=== PATIENT | female | born 1960 | race Caucasian/White ===

== ENCOUNTER → 2016-11-08 | Outpatient (CLI) | payer BC ==
--- NOTE | 2016-11-08 09:15 | CT ---
EXAMINATION TYPE: CT chest wo con DATE OF EXAM: 11/08/2016 8:59 AM COMPARISON: 11/11/2015 HISTORY: Patient complains of some shortness of breath. Follow up for known pulmonary nodule. CT DLP: 132.8 mGycm Automated exposure control for dose reduction was used. FINDINGS: There are bilateral breast implants in place. The heart is normal size without pericardial effusion. Aorta is normal caliber with conventional arch vessel branching anatomy. No thoracic lymphadenopathy. There is pleural-parenchymal scarring at the right apex with with a more spiculated region of opacity measuring 1.3 x 1.4 cm. Previously, this measured 1.3 x 1.4 cm on previous and 1.5 x 1.2 cm on 07/20. Overall size is unchanged. Some minimal strandy atelectasis in the basilar left lower lobe. No consolidation or pleural effusion. A tiny 3 mm pulmonary nodule left upper lobe axial image 24 is unchanged from 2013. Visualized upper abdomen shows no gross abnormality. Bones: Hypertrophic and degenerative change of the vertebral column noted. IMPRESSION: 1. Findings at the right apex favored to represent an area of pleural-parenchymal scarring as it has remained relatively stable back to 07/20/2014. Two years of stability which would support a benign et iology. 2. A left upper lobe 3 mm pulmonary nodule has also remained stable back to 07/20/2014 suggesting a b enign etiology.
== END | disposition home or self-care (01) ==
LOC: RADCTMAIN 08:37
PROVIDERS: ATTEND Internal Medicine Sleep Medicine
DX: R91.1 Solitary pulmonary nodule (principal)
CPT/HCPCS: 71250

== ENCOUNTER → 2017-11-28 | Outpatient (CLI) | payer BC, MEDICARE ==
--- NOTE | 2017-11-28 09:14 | CT ---
EXAMINATION TYPE: CT chest wo con DATE OF EXAM: 11/28/2017 COMPARISON: 11/08/2016 CT thorax, PET/CT dated 07/24/[address] dated 07/20/2014 HISTORY: Solitary pulmonary nodule CT DLP: 460 mGycm. Automated Exposure Control for Dose Reduction was Utilized. TECHNIQUE: CT scan of the thorax is performed without IV contrast. FINDINGS: LUNGS: Right apical pleural parenchymal scarring with central lucency, triangular morphology is uncha nged from the prior exam of 2016. This is also noted to be unchanged in size measuring 1.5 x 1.2 cm d ating back to 07/20/2014 and did not demonstrate hypermetabolic activity in the prior PET/CT. This sh ould be considered benign and related to right apical pleural scarring. The previously seen 3 mm left upper lobe pulmonary nodule now measures 2 mm and should also be considered benign, smaller than on the exam of 2013. No new focal consolidation, new pulmonary nodule, new pulmonary mass, pneumothorax or pleural effusion is seen. There is no pleural effusion or pneumothorax seen. The tracheobronchi al tree is patent. MEDIASTINUM: Lack of IV contrast is noted to limit evaluation for mediastinal and especially hilar ad enopathy. There are no definitive greater than 1 cm hilar or mediastinal lymph nodes. No cardiomega ly or pericardial effusion is seen. OTHER: Minimal degenerative changes of the thoracic spine are noted at multiple levels. Bilateral shaan ast implants are incidentally seen. IMPRESSION: Stable right apical pleural-parenchymal scarring and smaller 2 mm left upper lobe pulmona ry nodule in comparison to exam of 2014 should be considered benign. No new pulmonary mass or nodules identified. No mediastinal adenopathy.
== END ==
LOC: RADCTMAIN 08:42
PROVIDERS: ATTEND Internal Medicine Sleep Medicine
DX: R91.1 Solitary pulmonary nodule (principal)
CPT/HCPCS: 71250

== ENCOUNTER → 2017-12-13 | Outpatient (CLI) | payer MEDICARE ==
--- NOTE | 2017-12-13 12:52 | CT ---
EXAMINATION TYPE: CT abdomen pelvis w con DATE OF EXAM: 12/13/2017 COMPARISON: 04/20/2012 HISTORY: IBS with constipation; RLQ pain CT DLP: 502.10 mGycm Automated exposure control for dose reduction was used. CONTRAST: CT scan of the abdomen pelvis is performed with IV Contrast, patient injected with 100 mll mL of Isov ue 300. FINDINGS- LUNG BASES- No significant abnormality is appreciated. Previous breast surgery noted. LIVER/GB- No gross abnormality is appreciated. PANCREAS- No gross abnormality is seen. SPLEEN- No gross abnormality is seen. ADRENALS- No gross abnormality is seen. KIDNEYS/BLADDER- no hydronephrosis or nephrolithiasis. There is a 1 mm tiny density within the mid co rtex of the right kidney too small to characterize.. BOWEL- no bowel dilatation. Retained fecal debris throughout the colon correlate for constipation. L imited survey sigmoid colon there is a localized focal area of narrowing. LYMPH NODES- No greater than 1cm abdominal or pelvic lymph nodes are appreciated. OSSEOUS STRUCTURES-postsurgical change involving the lower lumbar spine with multilevel degenerative disc disease and hypertrophic changes noted.. OTHER- there is a slight depression along the proximal margin of the celiac axis which appears paten t and enhances normally. This can be associated with median arcuate ligament syndrome. Uterus is not seen correlate for history of previous hysterectomy. IMPRESSION- 1. Extensive retained fecal debris throughout the colon correlate for constipation. 2. There is a superior impression upon the proximal celiac axis which can be associated with the medi an arcuate ligament syndrome. 3. Within the mid sigmoid colon there is a localized focal area of narrowing. No evidence of obstruct ion. This could be transient peristalsis. Correlate clinically and if necessary with direct visualiza tion or barium enema to exclude mucosal lesion.
== END | disposition home or self-care (01) ==
LOC: RADCTMAIN 09:36
PROVIDERS: ATTEND Internal Medicine
DX: K58.1 Irritable bowel syndrome with constipation (principal); Z88.0 Allergy status to penicillin
CPT/HCPCS: 74177; Q9967

== ENCOUNTER → 2018-06-25 | Outpatient (CLI) | payer MEDICARE ==
--- NOTE | 2018-06-25 10:36 | MR ---
EXAMINATION TYPE: MR lumbar wo con DATE OF EXAM: 06/25/2018 COMPARISON: 10/15/2013 HISTORY: Chronic pain, Dorsalgia, Pain in thoracic spine TECHNIQUE: T1 and T2 axial and sagittal images of the lumbar spine are submitted. FINDINGS: There is no abnormal signal seen within the visualized spinal cord or paraspinal soft tissu es. Heterogeneous marrow signal is seen. There is postsurgical change levels L4-S1. Lack of contrast limits assessment. At L1-2 there is no disc herniation or canal stenosis. No foraminal encroachment. Tiny nerve root sle christiano diverticulum noted bilaterally. At L2-3 there is a circumferential disc bulging but no canal stenosis. Bulging greater laterally to l eft with a small annular tear and mild left-sided foraminal encroachment. There is a 2 mm retrolisthe sis of L2 relative to L3. At L3-4 there is degenerative disc disease. No canal stenosis or focal herniation. Mild circumferenti al disc bulging. Neural foramina patent. At L4-5 there is postsurgical change. No obvious disc herniation or canal stenosis. At L5-S1 there is postsurgical change no obvious disc herniation or canal stenosis. Neural foramina a ppear to be patent. IMPRESSION: 1. Postsurgical change with no definite disc herniation or canal stenosis. 2. At L2-L3 there is an annular tear and far left lateral disc bulge with mild left foraminal encroac hment which is new from the prior exam. 3. Heterogeneous marrow signal is nonspecific and be seen with osteopenia, marrow reconversion. Corre late clinically to exclude history of lymphoproliferative disorder or malignancy. Correlate with bone scan as clinically warranted. EXAMINATION TYPE: MR cervical spine wo con DATE OF EXAM: 06/25/2018 COMPARISON: 10/15/2013 HISTORY: Chronic pain, Dorsalgia, Pain in thoracic spine TECHNIQUE: T1 sagittal and coronal, T2 sagittal, and gradient echo axial views of the cervical spine are submitted. FINDINGS: The cranial cervical junction is preserved. There is no abnormal signal seen within the sp inal cord or paraspinal soft tissues. At C2-3 there is facet arthropathy. There is mild degenerative disc disease and uncovertebral joint h ypertrophy. No disc herniation or canal stenosis. Neural foramina patent. At C3-4 there is degenerative disc disease with facet arthropathy. Mild uncovertebral joint hypertrop hy but no canal stenosis or disc herniation. At C4-5 there is degenerative disc disease with uncovertebral joint hypertrophy and facet arthropathy . No disc herniation or canal stenosis. Neural foramina patent. At C5-6 there is severe degenerative disc disease with posterior spondylosis. Disc osteophyte complex protrudes posteriorly appears stable to prior exam. Uncovertebral joint hypertrophy and facet arthro genevieve contribute to bilateral foraminal encroachment which appears stable. At C6-7 there is severe degenerative changes with discogenic marrow changes. Disc bulging capped by s pur is noted with uncovertebral joint hypertrophy. Mild bilateral foraminal encroachment. No Canal st enosis. At C7-T1 there is no disc herniation or canal stenosis. No foraminal encroachment. IMPRESSION: 1. Multilevel degenerative disc disease with posterior spondylosis. Borderline canal stenosis C5-C6 with bilateral foraminal encroachment is stable. EXAMINATION TYPE: MR thoracic spine wo con DATE OF EXAM: 06/25/2018 COMPARISON: 06/03/2014 HISTORY: Chronic pain, Dorsalgia, Pain in thoracic spine TECHNIQUE: Multiplanar multisequence noncontrast imaging of the thoracic spine. FINDINGS: There is diffuse heterogeneous marrow signal. There is multilevel degenerative disc disease with hypertrophic spurring and loss of disc space and s ignal. No canal stenosis or focal herniation. Visualized spinal cord has a normal signal pattern. Minimal disc bulging paracentrally left at T8-T9. IMPRESSION: 1. Multilevel degenerative disc disease. 2. Heterogeneous marrow signal is nonspecific. Marrow reconversion in the differential correlate for history of lymphoproliferative disorder or malignancy. 3. Very mild left paracentral disc bulging T8-T9.
== END ==
LOC: RADMRIMAIN 08:39
PROVIDERS: ATTEND Psychiatry & Neurology Neurology
DX: M51.24 Other intervertebral disc displacement, thoracic region (principal); M51.34 Other intervertebral disc degeneration, thoracic region; M48.02 Spinal stenosis, cervical region; M50.30 Other cervical disc degeneration, unspecified cervical region; M47.812 Spondylosis without myelopathy or radiculopathy, cervical region; M51.26 Other intervertebral disc displacement, lumbar region
CPT/HCPCS: 72141; 72146; 72148

== ENCOUNTER → 2018-07-17 | Outpatient (CLI) | payer BC ==
--- NOTE | 2018-07-17 12:05 | NM ---
EXAMINATION TYPE: NM bone 3 phase DATE OF EXAM: 07/17/2018 COMPARISON: 06/25/2018 HISTORY: Abnormal MRI Triple phase bone scintigraphy was performed following the injection of 23.6 mCi Tc 99m MDP. Immedia te images and 3.5 hours post injection images acquired. FINDINGS: Perfusion overlying the abdomen is symmetric. Soft tissue uptake is symmetric. Delayed uptake demonst rates reduced uptake in L4 and L5 which likely is related. Abnormal uptake involving the feet likely is post arthritic. Abnormal uptake involving the knees like ly is post arthritic. Abnormal uptake involving the shoulders likely is post arthritic. Nonspecific uptake involving the mid and lower thoracic and cervical spine. IMPRESSION: 1. Uptake involving the mid and lower thoracic and cervical spine is nonspecific and correlates to th e MRI findings. 2. Reduced uptake at L4 and L5 likely is postsurgical. 3. Additional areas of abnormal uptake are suggestive of arthritic changes.
== END | disposition home or self-care (01) ==
LOC: RADNMMAIN 07:21
PROVIDERS: ATTEND Internal Medicine
DX: R94.8 Abnormal results of function studies of other organs and systems (principal)
CPT/HCPCS: 78315; A9503

== ENCOUNTER → 2019-06-12 | Outpatient (CLI) | payer BC ==
--- NOTE | 2019-06-12 18:27 | CT ---
EXAMINATION TYPE: CT chest wo con DATE OF EXAM: 06/12/2019 COMPARISON: 11/28/2017 HISTORY: Lung nodule CT DLP: 149.9 mGycm, Automated exposure control for dose reduction was used. CONTRAST: Performed injected with 0 mL of Isovue 300. TECHNIQUE: Axial images were obtained at 5 mm thick sections. Reconstructed images are reviewed on [employer] computer in the coronal plane. FINDINGS: Portion of the thyroid visualized is normal. Bilateral breast prostheses are noted. There is a spiculated 1.7 cm. The right apex. This could be scarring or underlying mass. This was pre sent 11/28/2017. No enlarged mediastinal or hilar adenopathy is evident. The ascending aorta diameter at the level o f the main pulmonary artery is 3.0 cm. The main pulmonary artery diameter at the bifurcation is 2.[address] sections are obtained through the upper abdomen. Abdomen is essentially unremarkable. IMPRESSIONS: 1. Spiculated right apical mass appears stable.
== END | disposition home or self-care (01) ==
LOC: RADCTMAIN 11:24
PROVIDERS: ATTEND Internal Medicine Sleep Medicine
DX: R91.1 Solitary pulmonary nodule (principal)
CPT/HCPCS: 71250

== ENCOUNTER → 2019-08-14 | Outpatient (CLI) | payer BC ==
--- NOTE | 2019-08-14 12:47 | MR ---
EXAMINATION TYPE: MR cervical spine wo/w con DATE OF EXAM: 08/14/2019 COMPARISON: 03/18/2018 HISTORY: Radiculopathy, cervical and lumbar region TECHNIQUE: T1 sagittal and coronal, T2 sagittal, and gradient echo axial views of the cervical spine are submitted. CONTRAST: 6.5 mL Gadavist FINDINGS: The cranial cervical junction is preserved. There is no abnormal signal seen within the sp inal cord or paraspinal soft tissues.There is a density in the right upper lobe seen on coronal image s which may be related to pleural thickening or scar. Other etiologies not excluded. Findings stable from chest CT of 11/28/2017. Heterogeneous marrow signal also involves the clivus. Bone scan could be performed as clinically warranted At C2-3 there is facet arthropathy. There is mild degenerative disc disease and uncovertebral joint h ypertrophy. No disc herniation or canal stenosis. Neural foramina patent. Minimal enhancement along t he posterior margin the disc spaces C2-C3. No corresponding abnormal signal in T2 imaging. This may b e discogenic. At C3-4 there is degenerative disc disease with facet arthropathy. Mild uncovertebral joint hypertrop hy but no canal stenosis or disc herniation. At C4-5 there is degenerative disc disease with uncovertebral joint hypertrophy and facet arthropathy . No disc herniation or canal stenosis. Neural foramina patent. At C5-6 there is severe degenerative disc disease with posterior spondylosis. Disc osteophyte complex protrudes posteriorly appears stable to prior exam. Uncovertebral joint hypertrophy and facet arthro genevieve contribute to bilateral foraminal encroachment which appears stable. At C6-7 there is severe degenerative changes with discogenic marrow changes. Disc bulging capped by s pur is noted with uncovertebral joint hypertrophy. Mild bilateral foraminal encroachment. No Canal st enosis. At C7-T1 there is no disc herniation or canal stenosis. No foraminal encroachment. IMPRESSION: 1. Multilevel degenerative disc disease with posterior spondylosis. Borderline canal stenosis C5-C6 w ith bilateral foraminal encroachment is stable. 2. Minimal enhancement along the posterior margin of the disc space at C2-C3 is nonspecific due to it s small size. No corresponding abnormal signal seen on T2 imaging. This could be discogenic. There is concern for discitis correlate clinically. 3. Stable nonspecific heterogeneous signal to the clivus. EXAMINATION TYPE: MR lumbar spine wo/w con DATE OF EXAM: 08/14/2019 COMPARISON: 03/18/2018 HISTORY: Radiculopathy, cervical and lumbar region CONTRAST: 6.5 mL Gadavist TECHNIQUE: T1 and T2 axial and sagittal images of the lumbar spine are submitted. FINDINGS: There is no abnormal signal seen within the visualized spinal cord or paraspinal soft tissu es. Heterogeneous marrow signal is seen. There is postsurgical change levels L4-S1. Lack of contrast limits assessment. Stable dural ectasia in the lower lumbar region. At L1-2 there is no disc herniation or canal stenosis. No foraminal encroachment. Tiny nerve root sle christiano diverticulum noted bilaterally. At L2-3 there is a circumferential disc bulging but no canal stenosis. Bulging greater laterally to l eft with a small annular tear and mild left-sided foraminal encroachment. There is a 2 mm retrolisthe sis of L2 relative to L3. At L3-4 there is degenerative disc disease. No canal stenosis or focal herniation. Mild broad-based c entral disc bulging stable. Neural foramina patent. At L4-5 there is postsurgical change. No obvious disc herniation or canal stenosis. At L5-S1 there is postsurgical change no obvious disc herniation or canal stenosis. Neural foramina a ppear to be patent. Stable intermediate signal anterior to the thecal sac L5-S1 unchanged from 2014 m ay been the basis of postoperative scar correlate clinically. Dural ectasia noted involving the lower lumbar regions. IMPRESSION: 1. Postsurgical change with no definite disc herniation or canal stenosis. Heterogeneous signal seen anterior to the thecal sac L5-S1 is stable dating back to 2014 likely in the basis of scar. 2. At L2-L3 there is an annular tear and far left lateral disc protrusion with mild left foraminal en croachment which is stable from the prior exam. 3. Heterogeneous marrow signal is nonspecific and be seen with osteopenia, marrow reconversion. Corre late clinically to exclude history of lymphoproliferative disorder or malignancy. 4. Mild broad-based central disc bulging L3-L4 stable relative to the prior exam. 5. Stable dural ectasia lower lumbar spine.
== END | disposition home or self-care (01) ==
LOC: RADMRIMAIN 08:23
PROVIDERS: ATTEND Psychiatry & Neurology Neurology
DX: M48.02 Spinal stenosis, cervical region (principal); M50.11 Cervical disc disorder with radiculopathy, high cervical region; M47.22 Other spondylosis with radiculopathy, cervical region; M51.26 Other intervertebral disc displacement, lumbar region; M51.86 Other intervertebral disc disorders, lumbar region; Z98.890 Other specified postprocedural states
CPT/HCPCS: 72156; 72158; A9585

== ENCOUNTER → 2020-06-29 | Outpatient (CLI) | payer BC ==
--- NOTE | 2020-06-29 09:21 | CT ---
EXAMINATION TYPE: CT chest wo con DATE OF EXAM: 06/29/2020 COMPARISON: Chest CT June 12, 2019 and older CTs HISTORY: Solitary pulmonary nodules CT DLP: 156.7 mGycm. Automated Exposure Control for Dose Reduction was Utilized. TECHNIQUE: CT scan of the thorax is performed without IV contrast. FINDINGS: LUNGS: There is 1.4 x 1.0 cm scarlike opacity right lung apex axial image [address] pr esumed benign. No new greater than 4 mm pulmonary nodules or masses. Mild posterior left basilar line ar scarring. No new suspicious consolidation. No pleural effusion or pneumothorax. MEDIASTINUM: Lack of IV contrast is noted to limit evaluation for mediastinal and especially hilar ad enopathy. There are no definitive greater than 1 cm hilar or mediastinal lymph nodes. No cardiomega ly or pericardial effusion is seen. OTHER: Bilateral intact subpectoral breast implants redemonstrated. Partial visualization of surgical change lumbar spine on localizer. IMPRESSION: Stable scarlike opacity right lung apex from 2014 CT presumed benign. No new suspicious n odules or masses.
== END | disposition home or self-care (01) ==
LOC: RADCTMAIN 08:34
PROVIDERS: ATTEND Internal Medicine Sleep Medicine
DX: R91.8 Other nonspecific abnormal finding of lung field (principal); R91.1 Solitary pulmonary nodule
CPT/HCPCS: 71250

== ENCOUNTER → 2020-06-29 | Outpatient (CLI) | payer BC ==
[2020-06-29 09:37] LABS: HCT 38.4 % (34.0-46.0); MCH 30.1 pg (25.0-35.0); MCHC 31.2 g/dL (31.0-37.0); MCV 96.5 fL (80.0-100.0); Mean Platelet Volume 6.6; Platelet Count 303 k/uL (150-450); RBC 3.98 m/uL (3.80-5.40); RDW 12.3 % (11.5-15.5); WBC 3.3 k/uL (3.8-10.6)
[2020-06-29 15:36] LABS: Protein, Total 6.9 g/dL (6.2-8.2)
[2020-06-29 16:46] LABS: Anti-DNA, DS unit <1.0 IU/mL; DNA Double-Stranded NEGATIVE (NEGATIVE)
[2020-06-29 18:53] LABS: Hemoglobin A1C 5.7 % (4.0-6.0)
[2020-06-29 20:14] LABS: Erythrocyte Sedimentation Rate 30 mm/Hr (0-30)
[2020-06-30 14:35] LABS: Albumin 4.17 g/dL (3.80-4.90)
== END | disposition home or self-care (01) ==
LOC: LABWHC1 08:11
PROVIDERS: ATTEND Psychiatry & Neurology Neurology
DX: M54.17 Radiculopathy, lumbosacral region (principal); M54.9 Dorsalgia, unspecified; M54.30 Sciatica, unspecified side; G89.29 Other chronic pain
CPT/HCPCS: 36415; 82306; 82607; 83036; 84165; 84443; 85027; 85652; 86225; 86334

== ENCOUNTER → 2021-09-29 | Outpatient (CLI) | payer BC | END | disposition home or self-care (01) | LOC: LABWHC1 14:17 | PROVIDERS: ATTEND Internal Medicine | DX: R50.9 Fever, unspecified (principal); R51.0 Headache with orthostatic component, not elsewhere classified | CPT/HCPCS: U0003; C9803; U0005 ==

== ENCOUNTER → 2021-11-20 | Outpatient (CLI) | payer BC | END | disposition home or self-care (01) | LOC: LABWHC1 15:25 | PROVIDERS: ATTEND Nurse Practitioner | DX: R00.2 Palpitations (principal) | CPT/HCPCS: 36415; 84443 ==

== ENCOUNTER → 2022-08-07 | Outpatient (CLI) | payer BC ==
--- NOTE | 2022-08-07 13:12 | XR ---
EXAMINATION TYPE: XR cervical spine comp DATE OF EXAM: 08/07/2022 TECHNIQUE: Frontal, lateral, oblique, and open mouth view of the cervical spine are obtained. HISTORY: [id number] CERVICALGIA COMPARISON: MRI cervical spine August 14, 2019 FINDINGS: The cervical spine is visualized in its entirety from C1 thru the top of T1 level, there i s new grade 1 anterolisthesis C4 on C5. There is stable grade 1 retrolisthesis C5 on C6. The pre-vert ebral soft tissue appears within normal limits. The C1-C2 articulation is within normal limits on th e open mouth view. Moderate to severe disc space narrowing with endplate sclerosis C5-C6 level is re demonstrated. Moderate disc space narrowing with mild spurring C6-C7 level is redemonstrated. The obl ique images are within normal limits. Overlying soft tissue is unremarkable. IMPRESSION: As above.
== END | disposition home or self-care (01) ==
LOC: RADXRYALE 12:13
PROVIDERS: ATTEND Internal Medicine
DX: M50.322 Other cervical disc degeneration at C5-C6 level (principal); M48.02 Spinal stenosis, cervical region
CPT/HCPCS: 72050

== ENCOUNTER → 2023-08-05 | Outpatient (CLI) | payer BC ==
--- NOTE | 2023-08-05 09:04 | US ---
EXAMINATION TYPE: US abdomen complete DATE OF EXAM: 08/05/2023 COMPARISON: NONE CLINICAL INDICATION: Female, 63 years old with history of D72.819 DECREASED WHITE BLOOD CELL COUNT; H ypertension, hyperlipidemia, anemia, abnormal bone marrow on imaging, thrombocytopenia. TECHNIQUE: Multiple sonographic images of the abdomen are obtained. FINDINGS: EXAM MEASUREMENTS: Liver Length: 15.0 cm Gallbladder Wall: 0.28 cm CBD: 0.32 cm Spleen: Limited, unable to accurately measure. Right Kidney: 10.9 x 5.4 x 4.4 cm Left Kidney: 10.6 x 4.9 x 6.1 cm JUNIOR ASSISTANT MANAGER NOTES: Limited due to great amount of bowel gas. Pancreas: Not well seen Liver: Hyperechoic focus seen within the right lobe: 0.5 x 0.4 x 0.3 cm. Could represent calcifica tion no CT correlate on prior abdomen pelvis 12/13/2017. Increased echotexture. Gallbladder: Appears wnl Evidence for sonographic Power's sign: No CBD: Portions seen appear wnl Spleen: Not well seen. Unable to view in correct plane to accurately measure. Right Kidney: Renal pelvis appears prominent. Left Kidney: Lobulated contour seen at mid, unable to clearly define any masses. Upper IVC: Appears wnl Abd Aorta: Proximal segment appears ectatic. Iliacs were obscured. IMPRESSION: 1. Hepatic steatosis with hyperechoic focus which could represent prominent periportal fat versus ca lcified lesion. 2. No acute process.
== END | disposition home or self-care (01) ==
LOC: RADUSWWP 07:31
PROVIDERS: ATTEND Internal Medicine Hematology & Oncology
DX: K76.0 Fatty (change of) liver, not elsewhere classified (principal); D72.819 Decreased white blood cell count, unspecified; I10 Essential (primary) hypertension; E78.5 Hyperlipidemia, unspecified; D60.9 Acquired pure red cell aplasia, unspecified; D69.6 Thrombocytopenia, unspecified; R79.9 Abnormal finding of blood chemistry, unspecified
CPT/HCPCS: 76700

== ENCOUNTER → 2023-08-16 | Outpatient (CLI) | payer BC ==
--- NOTE | 2023-08-20 08:53 | CT ---
EXAMINATION TYPE: CT abdomen w con DATE OF EXAM: 08/16/2023 COMPARISON: 12/13/2017 HISTORY: anemic, abdominal pain CT DLP: 375.4 mGycm CONTRAST: CT scan of the abdomen is performed with Oral Contrast and with IV Contrast, patient injected with 10 0 mL of Isovue 300. FINDINGS: LUNG BASES-: No visible nodule. No infiltrate. LIVER/GB: No calcified gallstones. No space occupying hepatic lesion. Biliary tree is of normal ca liber. PANCREAS: No inflammation. No distinct mass. SPLEEN: No splenic enlargement. No lesion seen. ADRENALS: No nodule. No thickening. KIDNEYS/BLADDER: No hydronephrosis. No nephrolithiasis. No distinct renal mass. Urinary bladder g rossly unremarkable. BOWEL: The visualized bowel loops demonstrate normal caliber. No inflammatory change appreciated. LYMPH NODES: No greater than 1cm abdominal or pelvic lymph nodes are appreciated. AORTA: No significant abnormality. OSSEOUS STRUCTURES: Postoperative changes the lumbar spine. OTHER: No significant additional abnormality is seen. IMPRESSION: 1. No significant abnormality to the patient's symptoms.
== END | disposition home or self-care (01) ==
LOC: RADCTMAIN 16:41
PROVIDERS: ATTEND Internal Medicine Hematology & Oncology
DX: D64.9 Anemia, unspecified (principal)
CPT/HCPCS: 74160; Q9967

== ENCOUNTER → 2024-08-25 | Outpatient (CLI) | payer BC ==
--- NOTE | 2024-08-25 11:59 | XR ---
EXAMINATION TYPE: XR chest 2V DATE OF EXAM: 08/25/2024 11:38 AM COMPARISON: Chest radiographs from 08/25/2024 CLINICAL INDICATION: Female, 64 years old with history of J45.30 mild persistent asthma; [facility] TECHNIQUE: XR chest 2V Frontal and lateral views of the chest. FINDINGS: Lungs/Pleura: There is no evidence of pleural effusion, focal consolidation, or pneumothorax. Pulmonary vascularity: Unremarkable. Heart/mediastinum: Cardiomediastinal silhouette is unremarkable. Musculoskeletal: No acute osseous pathology. IMPRESSION: No acute cardiopulmonary disease/process. [facility], , 08/25/2024 11:57 AM
== END | disposition home or self-care (01) ==
LOC: RADXRMAIN 11:26
PROVIDERS: ATTEND Internal Medicine Sleep Medicine
DX: J45.30 Mild persistent asthma, uncomplicated (principal)
CPT/HCPCS: 71046

== ENCOUNTER → 2024-11-18 | Outpatient (CLI) | payer BC ==
--- NOTE | 2024-11-18 08:33 | CT ---
EXAMINATION TYPE: CT chest wo con DATE OF EXAM: 11/18/2024 COMPARISON: Prior chest CT June 29, 2020 and CTs. CLINICAL INDICATION: Female, 64 years old with history of R91.1 SPN, LUNG NODULE TECHNIQUE: CT scan of the thorax is performed without IV contrast. CT DLP: 200.9 mGycm. Automated Exposure Control for Dose Reduction was Utilized. FINDINGS: LUNGS: There is stable 1.4 x 1.1 cm scarlike opacity right lung apex axial image 8 unchanged from old er CTs presumed benign. No new greater than 4 mm pulmonary nodules or masses. Mild posterior left bas ilar linear scarring is redemonstrated. No new suspicious consolidation. No pleural effusion or pneum othorax is seen bilaterally. MEDIASTINUM: Lack of IV contrast is noted to limit evaluation for mediastinal and especially hilar ad enopathy. There are no definitive greater than 1 cm new mediastinal lymph nodes. No cardiomegaly or pericardial effusion is seen. No significant coronary artery calcifications. OTHER: Bilateral intact subpectoral breast implants redemonstrated. Scoliotic curvature in the thorac ic spine is redemonstrated. IMPRESSION: Stable scarlike opacity right lung apex from 2014 CT presumed benign. No new suspicious n odules or masses. [facility], , 11/18/2024 8:30 AM
== END | disposition home or self-care (01) ==
LOC: RADCTMAIN 07:50
PROVIDERS: ATTEND Internal Medicine Sleep Medicine
DX: R91.1 Solitary pulmonary nodule (principal); Z98.82 Breast implant status
CPT/HCPCS: 71250

== ENCOUNTER → 2025-04-05 | Outpatient (CLI) | payer MEDICARE ==
[2025-04-05 15:20] LABS: HCT 38.6 % (37.2-46.3); HGB 12.2 g/dL (12.0-15.0); MCH 30.2 pg (27.0-32.0); MCHC 31.6 g/dL (32.0-37.0); MCV 95.5 FL (80.0-97.0); NRBC Per 100 WBC 0 X 10*3/uL (0.00-0.01); Platelet Count 344 X 10*3/uL (140-440); RBC 4.04 X 10*6/uL (4.10-5.20); RDW 12.4 % (11.5-14.5); WBC 4.24 X 10*3/uL (4.50-10.00)
[2025-04-05 16:05] LABS: NT-Pro-B-Type Natriuretic Pept 51 pg/mL (0-125)
[2025-04-05 16:13] LABS: ALT 20 U/L (8-44); AST 23 U/L (13-35); Albumin 4.2 g/dL (3.8-4.9); Albumin/Globulin Ratio 1.56 Ratio (1.60-3.17); Alkaline Phosphatase 81 U/L (41-126); Anion Gap 11.80 mmol/L (4.00-12.00); BUN/Creat Ratio 16.00 Ratio (12.00-20.00); Blood Urea Nitrogen 9.6 mg/dL (9.0-27.0); C Reactive Protein, High Sens 4.030 mg/L (0.000-3.000); Calcium 9.2 mg/dL (8.7-10.3); Carbon Dioxide 25.2 mmol/L (21.6-31.8); Chloride 105 mmol/L (96-109); Cholesterol 252.00 mg/dL (0.00-200.00); Globulin 2.7 g/dL (1.6-3.3); Glucose 100 mg/dL (70-110); HDL Cholesterol 62.00 mg/dL (40.00-60.00); LDL Cholesterol,Calculated 170.9 mg/dL (0.0-131.0); Potassium 4.4 mmol/L (3.5-5.5); Sodium 142 mmol/L (135-145); Total Protein 6.9 g/dL (6.2-8.2); Triglycerides 95.40 mg/dL (0.00-149.00); VLDL Calculation 19.08 mg/dL (5.00-40.00)
== END | disposition home or self-care (01) ==
LOC: LABWHC1 08:52
PROVIDERS: ATTEND Student in an Organized Health Care Education/Training Program
DX: Z13.6 Encounter for screening for cardiovascular disorders (principal); I50.9 Heart failure, unspecified; E11.9 Type 2 diabetes mellitus without complications; E78.5 Hyperlipidemia, unspecified; E03.9 Hypothyroidism, unspecified; D72.9 Disorder of white blood cells, unspecified; R79.89 Other specified abnormal findings of blood chemistry
CPT/HCPCS: 36415; 80053; 80061; 83036; 83880; 84443; 85027; 86141